=== PATIENT | male | born 2000 | race Caucasian/White ===

== ENCOUNTER 2020-08-20 17:06 | Emergency (ER) | payer BC ==
[2020-08-20] MEDS ORDERED: Acetaminophen 325 MG Tab PO ONE (17:48)
--- NOTE | 2020-08-20 17:48 | EDM.PDOC ---
ED HPI GENERAL MEDICAL PROBLEM - General Chief Complaint: Laceration Time Seen by Provider: 08/20/20 17:48 Source of Information: Reports: Patient, RN, RN Notes Reviewed History Limitations: Reports: No Limitations - History of Present Illness INITIAL COMMENTS - FREE TEXT/NARRATIVE: Patient is a 19-year-old male who presents to ER with complaint of laceration to the top of his head. Patient states he was has very low door frames in his home. States he was stepping over a baby gate after he brought his dog in from outside and hit his head on the top of the door frame causing laceration. Patient states he was not knocked out, did not fall. Patient states he did not become dizzy. Patient states tetanus vaccination is up-to-date. Onset: Today, Sudden Head Pain Score (Numeric/FACES): 6 - Related Data Allergies Allergy/AdvReac Type Severity Reaction Status Date / Time No Known Allergies Allergy Verified 08/20/20 17:46 Home Meds: Home Meds . [No Known Home Meds] 08/20/20 [History] Past Medical History - Past Health History Medical/Surgical History: Denies Medical/Surgical History ED ROS GENERAL - Review of Systems Review Of Systems: Comprehensive ROS is negative, except as noted in HPI. ED EXAM, SKIN/RASH Exam: See Below Exam Limited By: No Limitations General Appearance: Alert, WD/WN, No Apparent Distress Eye Exam: Bilateral Eye: EOMI, Normal Inspection Ears: Normal External Exam, Hearing Grossly Normal Nose: Normal Inspection Throat/Mouth: Normal Inspection, Normal Voice, No Airway Compromise Head: Normocephalic, Other (crown scalp laceration) Neck: Normal Inspection, Supple, Non-Tender, Full Range of Motion Respiratory/Chest: No Respiratory Distress, Lungs Clear, Normal Breath Sounds, No Accessory Muscle Use, Chest Non-Tender Cardiovascular: Normal Peripheral Pulses, Regular Rate, Rhythm, No Edema, No Gallop, No JVD, No Murmur, No Rub GI/Abdominal: Normal Bowel Sounds, Soft, Non-Tender (Male) Exam: Deferred Rectal (Males) Exam: Deferred Back Exam: Normal Inspection, Full Range of Motion, NT Extremities: Normal Inspection, Normal Range of Motion, Non-Tender, No Pedal Edema, Normal Capillary Refill Neurological: Alert, Oriented, CN II-XII Intact, Normal Cognition, Normal Gait, Normal Reflexes, No Motor/Sensory Deficits Psychiatric: Normal Affect, Normal Mood Skin: Warm, Dry, Normal Color, No Rash, Other (horseshoe shaped laceration to the scalp with a small laceration above the area. 8cm horseshoe laceration, 1cm lac above) Location, Skin: Head Lymphatic: No Adenopathy ED SKIN PROCEDURES - Laceration/Wound Repair Middle Midline [place] Head Appearance: Subcutaneous Distal NVT: Neuro & Vascular Intact Anesthetic Type: Other (none) Skin Prep: Chlorhexidine (Hibiciens) Exploration/Debridement/Repair: Wound Explored, In a Bloodless Field, Explored to Base, No Foreign Material Found Closed with: [place] Lac/Wound length In cm: 8 # of Sutures: 8 (mary) Drain Placement: No Sterile Dressing Applied: None Tetanus Status Addressed: Yes Complications: No Midline [place] Head Appearance: Subcutaneous Distal NVT: Neuro & Vascular Intact Anesthetic Type: Other (none) Skin Prep: Chlorhexidine (Hibiciens) Exploration/Debridement/Repair: Wound Explored, In a Bloodless Field, Explored to Base, No Foreign Material Found Closed with: Mary Lac/Wound length In cm: 1 # of Sutures: 2 (mary) Drain Placement: No Sterile Dressing Applied: None Tetanus Status Addressed: Yes Complications: No Course - Vital Signs Last Recorded V/S: Last Vital Signs Temp 97.9 F 08/20/20 17:20 Pulse 83 08/20/20 17:20 Resp 16 08/20/20 17:20 BP 138/86 08/20/20 17:20 Pulse Ox 97 08/20/20 17:20 - Orders/Labs/Meds Meds: Medications Discontinued Medications Generic Name Dose Route Start Last Admin Trade Name Steven PRN Reason Stop Dose Admin Acetaminophen 650 mg 08/20/20 17:48 08/20/20 17:59 Acetaminophen 325 Mg Tab PO 08/20/20 17:49 650 mg NOW ONE Administration Departure - Departure Time of Disposition: 17:57 Disposition: Home, Self-Care 01 Condition: Good Clinical Impression: Laceration - Discharge Information *PRESCRIPTION DRUG MONITORING PROGRAM REVIEWED*: No *COPY OF PRESCRIPTION DRUG MONITORING REPORT IN PATIENT ADIEL: No Instructions: Laceration Care, Adult, [id number], Sutures, Mary, or Adhesive Wound Closure, [id number] Forms: ED Department Discharge Additional Instructions: Keep area clean and dry May shower Follow up with your primary care facility (clinic) in 7-10 days to have mary removed Return to the ER with any worsening of symptoms i.e. nausea, vomiting, severe headache, uncontrollable emotions, blurred vision May use Tylenol and/or Ibuprofen as directed for pain Sepsis Event Note (ED) - Evaluation Sepsis Screening Result: No Definite Risk - Focused Exam Vital Signs: Vital Signs Temp Pulse Resp BP Pulse Ox 08/20/20 17:20 97.9 F 83 16 138/86 97
== END 2020-08-20 18:08 | disposition home or self-care (01) ==
LOC: VM.ED 17:06
DX: S01.01XA Laceration without foreign body of scalp, initial encounter (principal); W22.8XXA Striking against or struck by other objects, initial encounter; Y92.009 Unspecified place in unspecified non-institutional (private) residence as the place of occurrence of the external cause
CPT/HCPCS: 12004; 99282-25; 99283; A9270-GY

== ENCOUNTER 2021-06-03 18:40 | Emergency (ER) | payer OTHER | END 2021-06-03 19:57 | disposition short-term general hospital (02) | LOC: VM.ED 18:40 | DX: N50.812 Left testicular pain (principal) | CPT/HCPCS: 99284 ==

== ENCOUNTER 2021-10-25 19:56 | Emergency (ER) | payer BC, OTHER ==
[2021-10-25] MEDS ORDERED: Sodium Chloride 0.9% 10 ML Syringe FLUSH PRN (20:14)
[2021-10-25] MEDS ORDERED: HYDROmorphone 1 MG/ML Syringe IVPUSH ONE (20:15)
[2021-10-25] MEDS ORDERED: Lactated Ringers 1,000 ML IV ONE (20:15)
[2021-10-25] MEDS ORDERED: Ondansetron 4 MG/2 ML SDV IVPUSH ONE (20:15)
[2021-10-25 20:48] LABS: ANION GAP 17.3 mmol/L (5-15); CHLORIDE,CL 102 mmol/L (98-107); ESTIMATED GFR 80 mL/min (>=60); SODIUM,NA 139 mmol/L (136-145)
[2021-10-25] MEDS ORDERED: Iopamidol 612 MG/ML 100 ML Bottle IVPUSH ONE (21:23)
[2021-10-25] MEDS ORDERED: Ketorolac 15 MG/ML SDV IVPUSH ONE (22:14)
[2021-10-25] MEDS ORDERED: Take Home: Acetaminophen/HYDROcodone 325-10 MG, 5 Tab Pack PO ONE (22:14)
[2021-10-25] MEDS ORDERED: Tamsulosin 0.4 MG Cap.ER PO ONE (22:15)
== END 2021-10-25 23:00 | disposition home or self-care (01) ==
LOC: VM.ED 19:56
DX: N13.2 Hydronephrosis with renal and ureteral calculous obstruction (principal)
CPT/HCPCS: 74177; 80053; 81001; 85025; 96374; 96375; 99283; 99284-25; A9270-GY; J1170; J1885; J2405; J3490; J7120; Q9967